=== PATIENT | male | born 1965 | race Caucasian/White ===

== ENCOUNTER 2020-05-27 22:46 | Inpatient (IN) | payer BC, SELFPAY ==
--- NOTE | ~2020-05-27 | XR_ITS ---
EXAMINATION: XR chest 1V portable INDICATION: Atrial fibrillation, heart palpitations TECHNIQUE: Portable AP chest at 2318 hours COMPARISON: None available FINDINGS: The lungs are free of acute opacities. There is no pleural effusion or pneumothorax. The ca rdiomediastinal silhouette is normal. IMPRESSION: 1. No acute cardiopulmonary abnormality. Reviewed, dictated and finalized at location A. ESTATE SALES MANAGER
--- NOTE | ~2020-05-27 | CT_ITS ---
EXAMINATION: CT brain wo con DATE: 05/28/2020 05:13 INDICATION: Acute cerebrovascular accident. TECHNIQUE: Computed tomography (CT) of the head was performed without intravenous contrast. The mA wa s adjusted according to patient size. Iterative reconstruction technique was employed. The dose-lengt h product was 756.67 mGy-cm. COMPARISON: None FINDINGS: Motion artifact is noted. There is no intracranial hemorrhage, acute infarction, or abnorma l intracranial mass lesion. The ventricles are normal in size. The orbits are normal. The paranasal s inuses are clear. The mastoid air cells are normal. IMPRESSION: 1. Normal brain. Sensitivity is mildly decreased by motion artifact. Reviewed, dictated and finalized at location B. RADIATION THERAPIST
[2020-05-27 22:49] VITALS: BP 130/87; PULSE 118; RESP 21; TEMP 36.2; O2SAT 95
--- NOTE | 2020-05-27 23:04 | ECG_ITS ---
Measurements Intervals [place] Rate: 117 P: NV: 0 QRS: -51 QRSD: 139 T: 7 QT: 352 QTc: 492 Interpretive Statements ATRIAL FIBRILLATION WITH RAPID VENTRICULAR RESPONSE RIGHT BUNDLE BRANCH BLOCK LEFT ANTERIOR FASCICULAR BLOCK BASELINE ARTIFACT- I, II, III, AVR, AVL, AVF, V2-V4 ABNORMAL ECG Electronically Signed On 05-28-2020 6:43:32 CORPORATE RECYCLING MANAGER by Artur Patterson D.O.
[2020-05-27 23:22] LABS: Basophils Absolute Auto 0.1 K/mm3 (0.0-0.1); Basophils Percent Auto 0.6 % (0.2-1.2); Eosinophils Absolute Auto 0.1 K/mm3 (0-0.3); Eosinophils Percent Auto 0.6 % (0-4.4); Hematocrit 54.2 % (42.0-52.0); Hemoglobin 19.5 g/dL (14.0-18.0); Immature Granulocyte Absolute 0.07 K/mm3 (0.00-0.031); Immature Granulocyte Percent A 0.5 % (0-0.5); Lymphocytes Absolute Auto 2.16 K/mm3 (0.9-3.2); Lymphocytes Percent Auto 14.6 % (18.3-44.2); Mean Corpuscular Hemoglobin 32.7 pg (26-34); Mean Corpuscular Volume 90.8 fl (80-100); Monocytes Absolute Auto 1.1 K/mm3 (0.1-0.6); Monocytes Percent Auto 7.2 % (2.6-8.5); Neutrophils Absolute Auto 11.3 K/mm3 (1.3-6.7); Neutrophils Percent Auto 76.5 % (45.5-73.1); Platelet Count Result 160 k/mm3 (150-375); Red Blood Count 5.97 M/mm3 (4.6-6.20); White Blood Count 14.8 K/mm3 (4.5-10.0)
[2020-05-27] MEDS: SODIUM CHLORIDE 0.9% IV 1,000 ML 999 ML IV CONT (23:31)
[2020-05-27 23:32] LABS: Prothrombin Time 13.5 Seconds (11.1-14.7)
[2020-05-27] MEDS: PANTOPRAZOLE SODIUM IV 40 MG VIAL 80 MG IV PUSH (23:32)
[2020-05-27 23:33] LABS: Partial Thromboplastin Time 26.7 SECONDS (22.3-36.8)
[2020-05-27 23:34] LABS: Anion Gap 8 mmol/L (8-16); Blood Urea Nitrogen 28 mg/dL (9-20); Carbon Dioxide 34 mmol/L (22-30); Chloride 89 mmol/L (98-107); Estimated CRCL calculation 52 ml/min; Estimated Glomerular Filt Rate 45; Glucose 117 mg/dL (75-110); Potassium 3.2 mmol/L (3.4-5.0); Sodium 131 mmol/L (137-145)
[2020-05-27 23:38] LABS: Alanine Aminotransferase 38 U/L (4-50); Albumin Level 3.7 g/dL (3.5-5.1); Alkaline Phosphatase 101 U/L (38-126); Aspartate Amino Transferase 71 U/L (17-59); Ethanol < 10 mg/dL (<10); Lipase 157 U/L (23-300); Magnesium 1.5 mg/dL (1.6-2.3)
--- NOTE | 2020-05-27 23:44 | ED.ARRPALP ---
HPI - Arrhythmia/Palpitations General Chief Complaint: Arrhythmia/Palpitations Stated Complaint: Afib Time Seen by Provider: 05/27/20 22:48 Source: patient Mode of arrival: ambulatory Limitations: no limitations History of Present Illness HPI narrative: This patient is a 54 year old male with history of chronic atrial fibrillation and alcohol abuse who presents for a concern of atrial fibrillation. PAtient states that he restarted drinking again 2 weeks ago. He has been drinking 9 pints a day of alcohol , and he stopped drinking 2 days ago. He states he has not being eating very much. He developed daily nausea and vomiting 1 week ago and he states he has multiple episodes of nonbloody emesis. He states starting 2 days ago he is having intermittent episodes of hiccups. He states occasionally the hiccups take his breath away. He denies having chest pain, sob, palpitations or heart racing. He denies abdominal pain but he states he feels gurgling in his stomach occasionally. He takes aspirin 325 mg and metoprolol daily. He is having withdrawal symptoms with diaphoresis, nausea, vomiting and shakiness. HE denies history of DTs or seizures with his withdrawal symptoms in the past. Related Data Home Medications Medication Instructions Recorded Confirmed testosterone cypionate 100 mg/mL 100 mg IM WEEKLY ml 03/11/20 05/28/20 intramuscular oil aspirin 325 mg PO DAILY 05/27/20 metoprolol tartrate 50 mg PO TID 05/27/20 05/28/20 chlorpromazine 10 mg PO TID 05/28/20 05/28/20 Allergies Allergy/AdvReac Type Severity Reaction Status Date / Time No Known Allergies Allergy Verified 05/27/20 23:00 Review of Systems Review of Systems: All systems reviewed & are unremarkable except as noted in HPI and below Constitutional: Constitutional: Denies chills and Denies fever(s) Cardiovascular: Cardiovascular: Denies chest pain and Denies radiating jaw, neck or arm pain Respiratory: Respiratory: Denies chest congestion and Denies cough Gastrointestinal: Gastrointestinal: Denies abdominal pain, Reports nausea and Reports vomiting Neurologic: Denies headache(s) [facility] Past Medical History Medical History Alcohol abuse Atrial fibrillation Family History Family History Mother Family history of malignant neoplasm of breast in first degree relative Social History Social History Smoking status: Current every day smoker Tobacco type: cigarettes Additional smoking assessment comments: unknown how long smoker or how much Alcohol intake: current Substance use: unknown Gender identity (if verbalized by the patient): Male Spiritual care concerns: No Exam Const: General: alert and diaphoretic; No ill appearing Orientation/consciousness: patient oriented x3 HENMT: Head: normocephalic and atraumatic Face and sinus: face symmetric Mouth: Yes oropharynx normal and Yes moist mucous membranes Eyes: EOM: EOMs intact bilaterally Chest: Chest palpation & inspection: normal inspection of the chest Resp: Effort & Inspection: normal respiratory effort and no retractions Auscultation: clear to auscultation bilaterally Cardio: Rate: tachycardic Rhythm: abnormal rhythm Heart sounds: no murmurs GI: GI Palp: Yes Soft to palpation, No Tenderness to palpation present (GI) and No Guarding due to palpation present (GI) Auscultation: normal bowel sounds Skin: Rashes: no rashes Neuro: General: patient oriented x3 and moves all extremities Extrem: General: no pedal edema Psych: Mental Status: mental status grossly normal Affect: normal affect Thought content: Yes Normal thought content present Course Consultations Consultation #1: I discussed case with Dr. Patterson . He recommends hydrating patient since patient has been vomiting. Hold off on agressive rate
[2020-05-27 23:46] LABS: Troponin I < 0.012 ng/mL (0.000-0.034)
[2020-05-28] VITALS (21 sets, daily range): BP systolic 92–130; BP diastolic 53–102; PULSE 87–130; RESP 18–34; TEMP 36.5–36.8; O2SAT 93–99; BMI 30.8; BMI 29.4
--- NOTE | 2020-05-28 | ECHO_ITS ---
Patient Info Name: Brandt Darnell Age: 54 years : 1965 Gender: Male Ht: 72 in Wt: 218 lbs BSA: 2.26 m2 HR: 86 bpm BP: 86 / 69 mmHg Heart Rhythm: Atrial Fibrillation Technical Quality: Good Exam Date: 05/28/2020 10:09 AM Exam Location: [facility] Pulmonary Patient Status: Inpatient Admit Date: 05/28/2020 Staff Ordering Physician: Rory Tripp MD Rehabilitation Manager: Emigdio Altamirano RDCS Attending Provider: Manjit Hernandez MD Exam Type: CA echo doppler color flow Study Info Indications I48.1 - Persistent atrial fibrillation Complete two-dimensional, color flow and Doppler transthoracic echocardiogram is performed. History/Risk Factors Atrial fibrillation; EtOH withdrawal, CHF. Summary 1. Complete two-dimensional, color flow and Doppler transthoracic echocardiogram is performed. 2. Left ventricular chamber dimension is normal. 3. Left ventricular systolic function is mildly reduced, estimated at 45-50%. 4. The left ventricular diastolic function is normal. 5. E/e' 8 is minimally elevated. 6. Patient is in atrial fibrillation. 7. Right ventricular systolic function is reduced based on TAPSE 1.2 cm. 8. Left atrial chamber dimension is moderately enlarged. 9. There is mild mitral valve regurgitation. 10. There is trace tricuspid valve regurgitation. 11. No pulmonary hypertension, estimated pulmonary arterial systolic pressure is 27 mmHg. Left Ventricle E/e' 8 is minimally elevated. Patient is in atrial fibrillation. Left ventricular chamber dimension is normal. Left ventricular systolic function is mildly reduced, estimated at 45-50%. The left ventricular diastolic function is normal. Right Ventricle Right ventricular systolic function is reduced based on TAPSE 1.2 cm. Right ventricular chamber dimension is not well visualized. Left Atria Left atrial chamber dimension is moderately enlarged. Right Atria Right atrial chamber dimension is normal. Aortic Valve The aortic valve is trileaflet. There is no aortic valve stenosis. There is no aortic valve regurgitation. Pulmonic Valve There is no pulmonic regurgitation. Mitral Valve There is no mitral valve stenosis. There is mild mitral valve regurgitation. Tricuspid Valve There is trace tricuspid valve regurgitation. No pulmonary hypertension, estimated pulmonary arterial systolic pressure is 27 mmHg. Pericardium/Pleural There is no pericardial effusion. Inferior Vena Cava Normal inferior vena cava with >50% collapse upon inspiration consistent with normal right atrial pressure, 5 mmHg. Aorta The aortic root size at the sinus of Valsalva is normal. Left Ventricular Outflow Tract Name Value Normal LVOT 2D LVOT Diameter 2.3 cm LVOT Doppler LVOT Peak Gradient 3 mmHg LVOT Mean Gradient 1 mmHg LVOT VTI 12 cm LVOT VTI/AV VTI Ratio 0.8 LVOT Stroke Volume 48 ml LVOT CO 3.4 l/min LVOT CI 1.5 l/min/
[2020-05-28] MEDS: LORazepam INJ (*CRX) 2 MG/ML VIAL IV PUSH ×2 (00:11→01:42)
[2020-05-28] MEDS: PROMETHAZINE HCL 25 MG/ML AMPUL 12.5 MG IV PUSH (00:13)
[2020-05-28] MEDS: THIAMINE HCL INJ 100 MG, FOLIC ACID INJ 1 MG, MULTIVITAMINS-12 INJ VIAL 1 5 ML, MULTIVI... 1000 MG IV CONT (00:43)
[2020-05-28 00:57] LABS: Lactic Acid Reflex 1.3 mmol/L (0.7-2.1)
[2020-05-28] MEDS: POTASSIUM CHLORIDE 20 MEQ TABLET 40 MEQ PO (01:00)
[2020-05-28] MEDS: LACTATED RINGERS 1,000 ML 999 ML IV CONT (01:36)
--- NOTE | 2020-05-28 02:34 | PM.IMHP ---
H&P: HPI History of Present Illness Date/Time: 05/28/20 02:34 Chief complaint: DT, atrial fibrillation with afib Narrative: This is a 54 year old male with known history of chronic atrial fibrillation and does not appear to be on any chronic anticoagulants who is known to be a chronic alcoholic and known to drink 9 pints of alcohol daily. The patient presented to the hospital with a complaint of nausea, vomiting, and nonstop hiccups for the past 2 days. He last drank alcohol 2 days ago as well. The patient was found to be diaphoretic with visible tremors and was treated in the ER with 2 mg of Ativan as well as phenergan. He then began to hallucinate. The patient was also found to be in rapid atrial fibrillation with heart rates in the 140s-150s. Cardiology, Dr. Patterson was consulted by ER provider. The patient was rehydrated with IV fluids. On my encounter with him he is encephalopathic and appears to be withdrawing from alcohol. He denies any signifciant symptoms although he does not appear reliable. The patient had denied to ER provider any history of seizures or DTs. Product Development Scientist has been consulted by ER provider. Review of Systems Review of Systems: ROS unobtainable: Yes unobtainable due to mental status PMFSH Past Medical History Medical History Alcohol abuse Atrial fibrillation Family History Family History Mother Family history of malignant neoplasm of breast in first degree relative Social History Social History Smoking status: Current every day smoker Tobacco type: cigarettes Additional smoking assessment comments: unknown how long smoker or how much Alcohol intake: current Substance use: unknown Gender identity (if verbalized by the patient): Male Spiritual care concerns: No Comments Past histories are not obtainable from the patient secondary to his altered mental status. Meds Home Medications and Allergies Home Medications Medication Instructions Recorded Confirmed Type testosterone cypionate 100 mg/mL 100 mg IM WEEKLY ml 03/11/20 05/28/20 History intramuscular oil aspirin 325 mg PO DAILY 05/27/20 05/28/20 History metoprolol tartrate 50 mg PO TID 05/27/20 05/28/20 History chlorpromazine 10 mg PO TID 05/28/20 05/28/20 History Allergies Allergy/AdvReac Type Severity Reaction Status Date / Time No Known Allergies Allergy Verified 05/27/20 23:00 Vital Signs Vital Signs - 24 hr 05/27/20 22:49 05/28/20 00:44 05/28/20 01:26 Temperature 36.2 C L 36.5 C Pulse Rate 118 H 122 H 115 H Respiratory Rate 21 H 26 H 27 H Blood Pressure 130/87 100/63 123/73 Pulse Oximetry 95 97 96 05/28/20 01:35 Temperature Pulse Rate 116 H Respiratory Rate 23 H Blood Pressure 109/83 Pulse Oximetry 95 Exam Const: General: alert and awake Nutritional Appearance: well nourished Orientation/consciousness: confusion, patient obtunded and Other orientation findings (encephalopathic++ ) HENMT: Head: normal to inspection General nose exam: Normal external nose present Face and sinus: normal facial exam Mouth: Yes Normal oral and palatal mucosa present and Yes oropharynx normal Eyes: Pupils: Equal, round and reactive pupils present EOM: EOMs intact bilaterally Neck: Neck: supple and no JVD Thyroid: thyroid normal Lymphatic: lymphadenopathy not noted Resp: Effort & Inspection: normal respiratory effort Auscultation: clear to auscultation bilaterally Cardio: Rate: tachycardic Rhythm: abnormal rhythm irregularly irregular Heart sounds: no murmurs GI: Inspection: normal to inspection Auscultation: normal bowel sounds Skin: General skin exam: normal color and no rashes or lesions noted Neuro: Cranial nerves: Yes Equal, round and reactive pupils present Motor exam (neuro): Other motor observations present (moves all fou
[2020-05-28] MEDS: dexmedeTOMIDine 400 MCG/100 ML 400 MCG/100 ML BAG 17.5 MCG IV CONT ×2 (03:00→06:36)
--- NOTE | 2020-05-28 03:00 | ADMGEN ---
This patient, Brandt Darnell, was admitted to Intensive Care Unit-7. Patient/family oriented to hospital policies and general routines including ID bracelet, bed and alarms, visiting hours, pain management, procedures, bathroom and other care routines, personal items, smoking policy, room service/diet, and visiting hours. Information on how to activate the Rapid Response Team has been discussed. Patient/Family are encouraged to report perceived risks to care and to ask questions if they do not understand what they are told or what they should do.
[2020-05-28 05:24] LABS: Troponin I < 0.012 ng/mL (0.000-0.034)
[2020-05-28 05:30] LABS: Glucose Point of Care 104 (65-105)
[2020-05-28 06:05] LABS: Add Urine Microscopic? YES; Appearance Urine Clear (Clear); Bilirubin Urine Negative (Negative); Blood Urine 1+ (Negative); Color Urine Yellow (Yellow); Glucose Urine UA Negative (Negative); Ketones Urine Trace mg/dL (Negative); Leukocyte Esterase Ur Negative LEU/UL (Negative); Nitrate Urine Negative (Negative); Protein Urine Negative (Negative); RBC Urine 0-2 /hpf (0-2); Specific Grav Ur 1.011 (1.001-1.035); WBC Urine 0-3 /hpf
[2020-05-28] MEDS: SODIUM CHLORIDE 0.9% IV 1,000 ML 125 ML IV CONT ×2 (06:43→17:49)
[2020-05-28 06:44] LABS: Alanine Aminotransferase 29 U/L (4-50); Albumin Level 2.7 g/dL (3.5-5.1); Alkaline Phosphatase 73 U/L (38-126); Anion Gap 4 mmol/L (8-16); Aspartate Amino Transferase 60 U/L (17-59); Bilirubin,Total 1.4 mg/dL (0.2-1.3); Blood Urea Nitrogen 22 mg/dL (9-20); Carbon Dioxide 29 mmol/L (22-30); Chloride 101 mmol/L (98-107); Estimated CRCL calculation 84 ml/min; Estimated Glomerular Filt Rate > 60; Glucose 91 mg/dL (75-110); Magnesium 1.8 mg/dL (1.6-2.3); Potassium 3.4 mmol/L (3.4-5.0); Sodium 134 mmol/L (137-145)
--- NOTE | 2020-05-28 07:32 | PM.CNCAR ---
Assessment and Plan Assessment and plan (1) Atrial fibrillation with rapid ventricular response: Code(s): I48.91 - Unspecified atrial fibrillation Status: Acute Assessment and Plan: His HR is rapid due to dehydration and alcohol withdrawal. His rate was controlled with Metoprolol previously for persistent atrial fibrillation. [id number] 0. On aspirin. Rate is improved with IV fluids rehydration and sedation. Resume Metoprolol 50 mg TID since BP is stable. (2) Alcohol withdrawal delirium: Code(s): F10.231 - Alcohol dependence with withdrawal delirium Status: Acute Assessment and Plan: Management as per hospitalist or classroom instructor. (3) Chronic systolic (congestive) heart failure: Code(s): I50.22 - Chronic systolic (congestive) heart failure Status: Acute Assessment and Plan: Obtain echo as he is due to for one. History of Present Illness History of Present Illness Consult date/time: 05/28/20 07:32 Reason for consult: Atrail fib with RVR. 54 yr old man whose PCP is Dr. Ortega presented to ED last night due to nausea/vomiting. He has a history of atrial fibrillation, moderate systolic dysfunction,alcoholic who quit drinking in December 2019, quit smoking in December 2019, JEFF on CPAP but needs new mask diagnosed in 2013. Patient is currently asleep in restraints so I did not want to wake him up since he was agitated. Per the ED and H and P by hospitalist notes, patient had nausea, vomiting for last 2 days so he decided to come in for evaluation. States he started drinking about 9 pints of alcohol again 2 weeks ago and last drink was 2 days ago. He was found to be in rapid atrial fibrillation up to 130 bpm. IVF was started and his HR is improved to 90's bpm. He became agitated, delirious so he was moved to ICU. Ativan was given in ED. Then, Precedex was started for acute alcohol withdrawal. Previously, reported that he was found to be in atrial fibrillation in ED at [facility] in December 2019. His HR was controlled with Metoprolol and on aspirin. He quit drinking alcohol at that time which he was drinking a case of beer and a pint of Tequila daily. He quit smoking. He can walk 1 mile without any problems. He does not feel palpitations now though he is in atrial fib. Cardiovascular Procedures Echo/MUGA:: 12/19/[address] [facility]: EF 40%, mild LVE, mild LVH, mild MR/TR, RVSP 40 mmHg. Electrophysiology:: 03/11/20 EKG: Atrial fibrillation at 86 bpm, LAD, RBBB. Reason For Visit: DT, atrial fibrillation with afib Review of Systems Review of Systems: ROS unobtainable: Yes unobtainable due to medical condition [facility] Past Medical History Medical History Alcohol abuse Atrial fibrillation Family History Family History Mother Family history of malignant neoplasm of breast in first degree relative Social History Social History Smoking status: Current every day smoker Tobacco type: cigarettes Additional smoking assessment comments: unknown how long smoker or how much Alcohol intake: current Substance use: unknown Gender identity (if verbalized by the patient): Male Spiritual care concerns: No Meds Home Medications and Allergies Home Medications Medication Instructions Recorded Confirmed Type testosterone cypionate 100 mg/mL 100 mg IM WEEKLY ml 03/11/20 05/28/20 History intramuscular oil aspirin 325 mg PO DAILY 05/27/20 History metoprolol tartrate 50 mg PO TID 05/27/20 05/28/20 History chlorpromazine 10 mg PO TID 05/28/20 05/28/20 History Allergies Allergy/AdvReac Type Severity Reaction Status Date / Time No Known Allergies Allergy Verified 05/27/20 23:00 Vital Signs Vital Signs - 24 hr 05/27/20 22:49 05/28/20 00:44 05/28/20 01:26 Temperature 97.1 F L 97.7 F Pulse Rate 118 H 122 H 115 H Pu
[2020-05-28 07:33] LABS: Basophils Absolute Auto 0.1 K/mm3 (0.0-0.1); Basophils Percent Auto 0.6 % (0.2-1.2); Eosinophils Absolute Auto 0.1 K/mm3 (0-0.3); Eosinophils Percent Auto 1.2 % (0-4.4); Hematocrit 45.5 % (42.0-52.0); Hemoglobin 16.2 g/dL (14.0-18.0); Immature Granulocyte Absolute 0.04 K/mm3 (0.00-0.031); Immature Granulocyte Percent A 0.4 % (0-0.5); Lymphocytes Absolute Auto 1.92 K/mm3 (0.9-3.2); Lymphocytes Percent Auto 18.4 % (18.3-44.2); Mean Corpuscular HGB Conc 35.6 g/dl (32-36); Mean Corpuscular Hemoglobin 33.1 pg (26-34); Mean Corpuscular Volume 92.9 fl (80-100); Monocytes Absolute Auto 0.8 K/mm3 (0.1-0.6); Monocytes Percent Auto 7.2 % (2.6-8.5); Neutrophils Absolute Auto 7.5 K/mm3 (1.3-6.7); Neutrophils Percent Auto 72.2 % (45.5-73.1); Platelet Count Result 142 k/mm3 (150-375); Red Cell Distribution Width 15.6 % (11.5-14.5); White Blood Count 10.4 K/mm3 (4.5-10.0)
[2020-05-28] MEDS: KCL 20 MEQ/SW 100 ML 100 ML 50 MEQ IVPB ×2 (07:39→11:38)
[2020-05-28] MEDS: PANTOPRAZOLE SODIUM IV 40 MG VIAL IV PUSH (08:49)
--- NOTE | 2020-05-28 10:49 | WPDCNINT ---
Assessment and Plan Assessment and plan (1) Alcohol withdrawal delirium: Code(s): F10.231 - Alcohol dependence with withdrawal delirium Status: Acute Assessment and Plan: ICU CIWA monitoring Precedex currently is on hold because patient appears to be too sedated. Will continue Precedex as needed for now Thiamine and folic acid ordered (2) Acute encephalopathy: Code(s): G93.40 - Encephalopathy, unspecified Status: Acute Assessment and Plan: Toxic metabolic encephalopathy Head CT was normal Patient received Ativan multiple times in the ER and now was on Precedex overnight. Precedex is on hold now Monitor (3) Atrial fibrillation with rapid ventricular response: Code(s): I48.91 - Unspecified atrial fibrillation Status: Acute Assessment and Plan: Heart rate controlled IV Lopressor p.r.n. until patient is able to take p.o. metoprolol Aspirin Echo ordered (4) Hypomagnesemia: Code(s): E83.42 - Hypomagnesemia Status: Acute Assessment and Plan: 1 g magnesium sulfate (5) Hypokalemia: Code(s): E87.6 - Hypokalemia Status: Acute Assessment and Plan: Replacement ordered (6) Acute dehydration: Code(s): E86.0 - Dehydration Status: Acute Assessment and Plan: Improved with IV fluids. Continue at low rate (7) [place] (acute kidney injury): Code(s): N17.9 - Acute kidney failure, unspecified Status: Acute Assessment and Plan: Likely secondary to dehydration. Improved after IV fluid. Patient apparently has history of congestive heart failure. Will decrease IV fluid rate now Additional Plan DVT prophylaxis -Lovenox Nutrition -NPO Code Status - Full Code Sales Account Executive Consult Note Consult date: 05/28/20 Time Seen: 08:15 HPI: Brandt Darnell is a 54 year old male with known history of chronic atrial fibrillation and does not appear to be on any chronic anticoagulants who is known to be a chronic alcoholic and known to drink 9 pints of alcohol daily. The patient presented to the hospital last night with complaint of nausea, vomiting, and nonstop hiccups for the past 2 days. He last drank alcohol 2 days ago as well. The patient was found to be diaphoretic with visible tremors and was treated in the ER with 2 mg of Ativan as well as phenergan. He later was given another dose of Ativan. Patient developed hallucinations and was diagnosed with alcohol withdrawal. Was also found to be in a [place] and dehydrated. Patient was given IV fluids, cardiology was consulted. His heart rate improved with IV fluids and did not required any rate control medication. Patient was then started on Precedex for alcohol withdrawal and delirium and admitted to ICU. This morning when I saw the patient he was drowsy and unarousable. I stopped the Precedex. Patient was unable to provide any history and history obtained from chart. Review of Systems Review of Systems: ROS unobtainable: Yes unobtainable due to medical condition [facility] Past Medical History Medical History Alcohol abuse Atrial fibrillation Family History Family History Mother Family history of malignant neoplasm of breast in first degree relative Social History Social History Smoking status: Current every day smoker Tobacco type: cigarettes Additional smoking assessment comments: unknown how long smoker or how much Alcohol intake: current Substance use: unknown Gender identity (if verbalized by the patient): Male Spiritual care concerns: No Meds Home Medications and Allergies Home Medications Medication Instructions Recorded Confirmed Type testosterone cypionate 100 mg/mL 100 mg IM WEEKLY ml 03/11/20 05/28/20 History intramuscular oil aspirin 325 mg PO DAILY 05/27/20 His
[2020-05-28] MEDS: THIAMINE HCL 200 MG/2 ML VIAL 100 MG IV PUSH (11:37)
[2020-05-28] MEDS: MAGNESIUM SULF 1 GM/D5W 100 ML 1 GM/100 ML BAG IVPB (11:37)
[2020-05-28] MEDS: FOLIC ACID 1 MG/0.2 ML INJ IV PUSH (11:37)
--- NOTE | 2020-05-28 16:10 | PM.IMPN ---
Progress Note: A&P Assessment and Plan (1) Acute encephalopathy: Code(s): G93.40 - Encephalopathy, unspecified Status: Acute Assessment and Plan: Appears to be secondary to acute alcohol withdrawal. The patient has been admitted to ICU. NPO. Continue telemetry. Neuro checks. We will obtain a stat CT brain rule out acute hemorrhagic CVA. Continue treatment for alcohol withdrawal. Check TSH reflex T4. 05/28/20 16:10 Patient is a 54-year-old male with history of atrial fibrillation and alcohol abuse he had stop drinking in December of 2019 is doing reasonably well apparently patient restarted drinking 2 weeks ago and had been drinking 9 pt of liquor every day and presented emergency department with a complaint of persistent hiccups, nausea or vomiting, upon arrival emergency department he was in atrial fibrillation with RVR, emergency department he was started on IV fluid which did improve his heart rate, patient was seen by his Cardiology patient [id number] score is 0 and patient does not systematic anticoagulation he was started on aspirin, patient is also placed on Precedex for agitation currently is quite somnolent and sleepy unable to provide any review of symptoms or history patient is being monitor with CIWA protocol and further recommendation to follow. (2) Atrial fibrillation with rapid ventricular response: Code(s): I48.91 - Unspecified atrial fibrillation Status: Acute Assessment and Plan: Patient does have a history of chronic atrial fibrillation. We will consider rate-controlling medications such as Cardizem IV if necessary. ER provider has consulted Cardiology who recommended IV fluids. Echocardiogram in a.m.. Continue telemetry. (3) Alcohol withdrawal: Qualifiers: Complication of substance-induced condition: with delirium Qualified Code(s): F10.231 - Alcohol dependence with withdrawal delirium Code(s): F10.239 - Alcohol dependence with withdrawal, unspecified Status: Acute Assessment and Plan: The patient is in severe alcohol withdrawal with diaphoresis, anxiety, Nausea and vomiting, visible tremors, and hallucinations. his last drink was 2 days ago. We will treat any acute seizures accordingly. We will start Precedex IV for alcohol withdrawal. (4) Sepsis: Qualifiers: Sepsis type: sepsis due to unspecified organism Sepsis acute organ dysfunction status: with acute organ dysfunction Severe sepsis acute organ dysfunction type: acute renal failure Acute renal failure type: unspecified Severe sepsis shock status: without septic shock Qualified Code(s): A41.9 - Sepsis, unspecified organism; R65.20 - Severe sepsis without septic shock; N17.9 - Acute kidney failure, unspecified Code(s): A41.9 - Sepsis, unspecified organism Status: Acute Assessment and Plan: With leukocytosis, tachycardia, and tachypnea. Source of sepsis is not clear at this time. Lactic acid is within normal limits. Patient's abnormal vitals may also be secondary to acute alcohol withdrawal. We will check urinalysis with reflex urine culture as well as blood cultures. Will consider starting IV antibiotics if there is any signs or symptoms of bacterial infections. (5) Acute renal failure: Code(s): N17.9 - Acute kidney failure, unspecified Status: Acute Assessment and Plan: Likely secondary to hypoperfusion, sepsis, and dehydration. Continue IV fluid challenge overnight. Avoid nephrotoxin agents. Renally dose medications. Monitor urine output and renal function. (6) Nausea and vomiting: Qualifiers: Vomiting type: unspecified Vomiting Intractability: non-intractable Qualified Code(s): R11.2 - Nausea with vomiting, unspecified Code(s): R11.2 - Nausea with vomiting, unspecified Status: Acute Assessment and Plan: Antiemetics as needed. Nausea vomiting is likely secondary to alcohol withdrawal. (7) Acute
[2020-05-29] VITALS (15 sets, daily range): BP systolic 100–150; BP diastolic 70–99; PULSE 80–115; RESP 14–25; TEMP 36.4–37.3; O2SAT 92–99
[2020-05-29] MEDS: dexmedeTOMIDine 400 MCG/100 ML 400 MCG/100 ML BAG 10 MCG IV CONT (00:23)
[2020-05-29] MEDS: SODIUM CHLORIDE 0.9% IV 1,000 ML 125 ML IV CONT (03:05)
[2020-05-29 04:39] LABS: Basophils Absolute Auto 0.1 K/mm3 (0.0-0.1); Basophils Percent Auto 0.8 % (0.2-1.2); Eosinophils Absolute Auto 0.3 K/mm3 (0-0.3); Eosinophils Percent Auto 3.2 % (0-4.4); Hematocrit 44.5 % (42.0-52.0); Hemoglobin 15.4 g/dL (14.0-18.0); Immature Granulocyte Absolute 0.04 K/mm3 (0.00-0.031); Immature Granulocyte Percent A 0.5 % (0-0.5); Immature Platelet Fraction Pct 5.4 % (0.9-11.2); Lymphocytes Absolute Auto 1.77 K/mm3 (0.9-3.2); Lymphocytes Percent Auto 20.1 % (18.3-44.2); Mean Corpuscular HGB Conc 34.6 g/dl (32-36); Mean Corpuscular Hemoglobin 32.1 pg (26-34); Mean Corpuscular Volume 92.7 fl (80-100); Monocytes Absolute Auto 0.7 K/mm3 (0.1-0.6); Monocytes Percent Auto 7.8 % (2.6-8.5); Neutrophils Percent Auto 67.6 % (45.5-73.1); Platelet Count Result 114 k/mm3 (150-375); Red Cell Distribution Width 15.3 % (11.5-14.5); White Blood Count 8.8 K/mm3 (4.5-10.0)
[2020-05-29 04:59] LABS: Alanine Aminotransferase 28 U/L (4-50); Albumin Level 2.7 g/dL (3.5-5.1); Alkaline Phosphatase 75 U/L (38-126); Anion Gap 2 mmol/L (8-16); Aspartate Amino Transferase 46 U/L (17-59); Bilirubin,Total 1.3 mg/dL (0.2-1.3); Blood Urea Nitrogen 18 mg/dL (9-20); Calcium 7.8 mg/dL (8.4-10.2); Carbon Dioxide 30 mmol/L (22-30); Chloride 101 mmol/L (98-107); Estimated CRCL calculation 89 ml/min; Estimated Glomerular Filt Rate > 60; Glucose 64 mg/dL (75-110); Magnesium 1.9 mg/dL (1.6-2.3); Potassium 3.7 mmol/L (3.4-5.0); Sodium 133 mmol/L (137-145)
--- NOTE | 2020-05-29 07:52 | PM.PNCARD ---
Progress Note: A&P Assessment and Plan (1) Atrial fibrillation with rapid ventricular response: Code(s): I48.91 - Unspecified atrial fibrillation Status: Acute Assessment and Plan: His HR is rapid due to dehydration and alcohol withdrawal. His rate was controlled with Metoprolol previously for persistent atrial fibrillation. [id number] 0. On aspirin. Rate is improved with IV fluids rehydration and sedation yesterday. If he is able to take PO medications which appears he can today, resume Metoprolol 25-50 mg BID-TID to heart rate control. (2) Alcohol withdrawal delirium: Code(s): F10.231 - Alcohol dependence with withdrawal delirium Status: Acute Assessment and Plan: Management as per hospitalist or actuary clerk. Advise to avoid alcohol. (3) Chronic systolic (congestive) heart failure: Code(s): I50.22 - Chronic systolic (congestive) heart failure Status: Acute Assessment and Plan: EF shows mild systolic dysfunction, RV systolic dysfunction based on TAPSE, mod LAE. Subjective Date/time seen: 05/29/20 07:52 Patient is awake, alert and oriented. Denies chest pain or sob. Exam Const: General: cooperative, healthy appearing and comfortable Resp: Auscultation: clear to auscultation bilaterally, no crackles, no rales, no rhonchi and no wheezes Cardio: Jugular venous distension: no JVD Rate: regular rate Rhythm: abnormal rhythm Heart sounds: no murmurs Peripheral pulses: dorsalis pedis present GI: GI Palp: No abdominal tenderness Neuro: General: oriented to person, oriented to place and oriented to time Extrem: Right lower extremity: no edema Left lower extremity: no edema Objective Data Vital Signs Vital Signs: Vital Signs - 24 hr 05/28/20 08:00 05/28/20 10:00 05/28/20 12:00 Temperature 97.9 F Pulse Rate 93 94 89 Pulse Rate [Bilateral Radial Palpation] 93 89 Respiratory Rate 33 H 30 H 33 H Blood Pressure 109/93 H 92/67 L 108/87 Pulse Oximetry 94 95 96 05/28/20 14:00 05/28/20 14:04 05/28/20 16:00 Temperature Pulse Rate 91 91 96 Pulse Rate [Bilateral Radial Palpation] 96 Respiratory Rate 28 H 28 H 25 H Blood Pressure 100/56 L 106/90 Pulse Oximetry 96 96 05/28/20 18:00 05/28/20 19:05 05/28/20 20:00 Temperature 98.2 F Pulse Rate 92 87 94 Pulse Rate [Bilateral Radial Palpation] 94 Respiratory Rate 23 H 24 H 24 H Blood Pressure 113/91 H 117/90 Pulse Oximetry 98 97 05/28/20 20:15 05/28/20 22:00 05/28/20 23:46 Temperature Pulse Rate 94 93 93 Pulse Rate [Bilateral Radial Palpation] Respiratory Rate 26 H 22 H 21 H Blood Pressure 130/102 H Pulse Oximetry 99 05/29/20 00:00 05/29/20 00:23 05/29/20 02:00 Temperature Pulse Rate 93 93 98 Pulse Rate [Bilateral Radial Palpation] 94 Respiratory Rate 21 H 21 H 22 H Blood Pressure 138/98 H 139/86 Pulse Oximetry 98 98 05/29/20 04:00 05/29/20 06:00 05/29/20 07:39 Temperature 98.2 F 98.3 F 97.6 F Pulse Rate 96 94 95 Pulse Rate [Bilateral Radial Palpation] 94 Respiratory Rate 16 16 19 Blood Pressure 135/99 H 150/99 H 130/95 H Pulse Oximetry 96 99 92 Intake/Output Intake/Output: Intake & Output 05/26/20 05/27/20 05/28/20 05/29/20 23:59 23:59 23:59 23:59 Intake Total 5907.2 100 Output Total 850 850 Balance 5057.2 -750 Meds/Results Medications: Active Medications Generic Name Dose Route Start Last Admin Trade Name Freq PRN Reason Stop Dose Admin Aspirin 325 mg 05/28/20 08:00 05/28/20 11:17 Aspirin 325 Mg Tablet PO Not Given DAILY@0800 ARACELI Enoxaparin Sodium 40 mg 05/29/20 09:00 Enoxaparin 40 Mg/0.4 Ml Syringe SUB-Q DAILY ARACELI Folic Acid 1 mg 05/28/20 09:00 05/28/20 11:37 Folic Acid 1 Mg/0.2 Ml Inj IV PUSH 1 mg QAM ARACELI Administration Sodium Chloride 1,000 mls @ 75 mls/hr 05/28/20 06:15 05/29/20 03:05 Normal Saline Iv IV CONT 125 mls/hr .[id number] ARACELI Administration Lorazepam 1 mg 120
[2020-05-29] MEDS: FOLIC ACID 1 MG/0.2 ML INJ IV PUSH (08:29)
[2020-05-29] MEDS: ASPIRIN 325 MG TABLET PO (08:29)
[2020-05-29] MEDS: THIAMINE HCL 200 MG/2 ML VIAL 100 MG IV PUSH (09:16)
[2020-05-29] MEDS: ENOXAPARIN 40 MG/0.4 ML SYRINGE SUB-Q (09:17)
[2020-05-29] MEDS: PANTOPRAZOLE SODIUM IV 40 MG VIAL IV PUSH (09:17)
[2020-05-29] MEDS: METOPROLOL TARTRATE 25 MG TABLET PO ×2 (09:17→20:54)
[2020-05-29] MEDS: chlordiazePOXIDE (*CRX) 25 MG CAPSULE 50 MG PO (10:59)
--- NOTE | 2020-05-29 12:40 | WPDINTPN ---
Progress Note: A&P Assessment and Plan (1) Alcohol withdrawal delirium: Code(s): F10.231 - Alcohol dependence with withdrawal delirium Status: Acute Assessment and Plan: Currently on Precedex which I will discontinue I ordered Ativan p.o. and IV depending on his CIWA score Continue CIWA monitoring Continue Thiamine and folic acid ordered (2) Acute encephalopathy: Code(s): G93.40 - Encephalopathy, unspecified Status: Acute Assessment and Plan: Toxic metabolic encephalopathy Head CT was normal Patient received Ativan multiple times in the ER and now was on Precedex overnight. Precedex is on hold now Improved patient appears at baseline (3) Atrial fibrillation with rapid ventricular response: Code(s): I48.91 - Unspecified atrial fibrillation Status: Acute Assessment and Plan: Heart rate controlled IV Lopressor p.r.n. Aspirin Echo reviewed P.o. metoprolol resume (4) Hypomagnesemia: Code(s): E83.42 - Hypomagnesemia Status: Acute Assessment and Plan: Improved after 1 g magnesium sulfate (5) Hypokalemia: Code(s): E87.6 - Hypokalemia Status: Acute Assessment and Plan: Replacement ordered (6) Acute dehydration: Code(s): E86.0 - Dehydration Status: Acute Assessment and Plan: Improved with IV fluids. Continue at low rate (7) [place] (acute kidney injury): Code(s): N17.9 - Acute kidney failure, unspecified Status: Acute Assessment and Plan: Likely secondary to dehydration. Improved after IV fluid. Creatinine now in normal range (8) CHF (congestive heart failure): Code(s): I50.9 - Heart failure, unspecified Status: Acute Assessment and Plan: Cardiology following Continue metoprolol ECHO Summary 1. Complete two-dimensional, color flow and Doppler transthoracic echocardiogram is performed. 2. Left ventricular chamber dimension is normal. 3. Left ventricular systolic function is mildly reduced, estimated at 45-50%. 4. The left ventricular diastolic function is normal. 5. E/e' 8 is minimally elevated. 6. Patient is in atrial fibrillation. 7. Right ventricular systolic function is reduced based on TAPSE 1.2 cm. 8. Left atrial chamber dimension is moderately enlarged. 9. There is mild mitral valve regurgitation. 10. There is trace tricuspid valve regurgitation. 11. No pulmonary h pertension, estimated pulmonary arterial systolic pressure is 27 mmHg. Additional Plan DVT prophylaxis -Lovenox Nutrition -regular diet Code Status - Full Code Transfer out of ICU today Subjective Date/time seen: 05/29/20 Patient is much more awake and alert today. Although he is on Precedex at 0.4, he is alert oriented x3. He denies any complaints and feels good. He feels he a was admitted because of atrial fibrillation and is unaware. He denies any hallucinations at this time Patient denies fever, chest pain, shortness of breath, cough, nausea vomiting, abdominal pain, diarrhea, headache or constipation. He would like to eat food Review of Systems Review of Systems: All systems reviewed & are unremarkable except as noted in HPI and below (Subjective) Exam Narrative: Exam Narrative: General: Pt is alert awake and in NAD Lungs/Chest: Trachea central Clear BS B/L, No crackles or wheezing. Cardiac: RRR. Normal S1 S2. No murmurs Circulation: Pedal pulses are intact and symmetrical. Abdomen: Normal bowel sounds.. Soft. NT. ND. Extremities: No clubbing, cyanosis or edema. Warm : [place] in place Neurologic: Follows commands. Moves all 4 extremities PERRL Skin: No Rash Objective Data Vital Signs Vital Signs: Vital Signs - 24 hr 05/28/20 14:00 05/28/20 14:04 05/28/20 16:00 Temperature Pulse Rate 91 91 96 Pulse Rate [Bilateral Radial Palpation] 96 Respiratory Rate 28 H 28 H 25 H Blood Pressure 100/56 L 106/90 Pulse Oximetry 96 96
--- NOTE | 2020-05-29 14:01 | PC.NURSE ---
This patient, Brandt Darnell, was transferred to [facility] on 05/29/20 at 1355. Personal belongings sent with patient. Report given to Bhavya OLSEN. Appropriate documentation sent with patient.
[2020-05-29] MEDS: POTASSIUM CHLORIDE 20 MEQ TABLET 40 MEQ PO (14:26)
--- NOTE | 2020-05-29 14:36 | PC.NURSE ---
Patient arrives to [facility] room 5. Patient is A & O x 4, tremors noted. VS obtained. Assessment as charted. Sitter at bedside. Patient updated on plan of care and verbalizes understanding. Will continue to monitor.
[2020-05-29] MEDS: chlordiazePOXIDE (*CRX) 25 MG CAPSULE PO (17:29)
[2020-05-29] MEDS: NICOTINE (*PBKC) 4 MG GUM PO (20:20)
[2020-05-29] MEDS: LORazepam (*CRX) 1 MG TABLET PO (20:54)
[2020-05-30] VITALS: BP 140/102; PULSE 107; RESP 18; TEMP 36.2; O2SAT 98
[2020-05-30] MEDS: chlordiazePOXIDE (*CRX) 25 MG CAPSULE PO ×2 (00:09→06:08)
--- NOTE | 2020-05-30 00:29 | PC.NURSE ---
Upon entering room for PM medications pt. states that he would like to leave and continue to take medications at home. Pt. offered PRN dose of Ativan and agrees to stay until morning. Pt. education on relaxation techniques and room lights dimmed for comfort. Pt. in no apparent distress at this time. Will continue to monitor pt.
[2020-05-30] MEDS: LORazepam (*CRX) 1 MG TABLET PO ×2 (00:31→03:58)
[2020-05-30 04:00] VITALS: BP 123/88; PULSE 99
[2020-05-30 05:48] LABS: Hematocrit 45.8 % (42.0-52.0); Hemoglobin 15.9 g/dL (14.0-18.0); Mean Corpuscular HGB Conc 34.7 g/dl (32-36); Mean Corpuscular Hemoglobin 32.9 pg (26-34); Mean Corpuscular Volume 94.8 fl (80-100); Mean Platelet Volume 10.2 fl (7.4-10.4); Platelet Count Result 145 k/mm3 (150-375); Red Blood Count 4.83 M/mm3 (4.6-6.20); Red Cell Distribution Width 15.8 % (11.5-14.5); White Blood Count 7.8 K/mm3 (4.5-10.0)
[2020-05-30 06:10] LABS: Alanine Aminotransferase 28 U/L (4-50); Albumin Level 2.9 g/dL (3.5-5.1); Alkaline Phosphatase 82 U/L (38-126); Anion Gap 1 mmol/L (8-16); Aspartate Amino Transferase 41 U/L (17-59); Bilirubin,Total 0.9 mg/dL (0.2-1.3); Blood Urea Nitrogen 10 mg/dL (9-20); Calcium 8.1 mg/dL (8.4-10.2); Carbon Dioxide 32 mmol/L (22-30); Chloride 103 mmol/L (98-107); Estimated CRCL calculation 101 ml/min; Estimated Glomerular Filt Rate > 60; Glucose 80 mg/dL (75-110); Magnesium 1.9 mg/dL (1.6-2.3); Potassium 3.5 mmol/L (3.4-5.0); Sodium 136 mmol/L (137-145)
[2020-05-30 08:00] VITALS: BP 138/97; PULSE 61; PULSE 97; RESP 16; TEMP 36.6; O2SAT 96
--- NOTE | 2020-05-30 08:48 | PM.PNCARD ---
Progress Note: A&P Assessment and Plan (1) Atrial fibrillation with rapid ventricular response: Code(s): I48.91 - Unspecified atrial fibrillation Status: Acute Assessment and Plan: His HR is rapid due to dehydration and alcohol withdrawal. His rate was controlled with Metoprolol previously for persistent atrial fibrillation. [id number] 0. On aspirin. Rate is improved with IV fluids rehydration and Ativan prn. Increase Metoprolol 50 mg TID for heart rate control. (2) Alcohol withdrawal delirium: Code(s): F10.231 - Alcohol dependence with withdrawal delirium Status: Acute Assessment and Plan: Management as per hospitalist. Advise to avoid alcohol. (3) Chronic systolic (congestive) heart failure: Code(s): I50.22 - Chronic systolic (congestive) heart failure Status: Acute Assessment and Plan: EF shows mild systolic dysfunction, RV systolic dysfunction based on TAPSE, mod LAE. Subjective Date/time seen: 05/30/20 08:48 Reports less shakiness in his hands. Denies chest pain or sob. Exam Const: General: cooperative, healthy appearing and comfortable Resp: Auscultation: clear to auscultation bilaterally, no crackles, no rales, no rhonchi and no wheezes Cardio: Jugular venous distension: no JVD Rate: regular rate Rhythm: abnormal rhythm Heart sounds: no murmurs Peripheral pulses: dorsalis pedis present GI: GI Palp: No abdominal tenderness Neuro: General: oriented to person, oriented to place and oriented to time Extrem: Right lower extremity: no edema Left lower extremity: no edema Objective Data Vital Signs Vital Signs: Vital Signs - 24 hr 05/29/20 09:17 05/29/20 10:00 05/29/20 12:10 Temperature Pulse Rate 95 96 Pulse Rate [Bilateral Radial Palpation] Respiratory Rate 25 H Blood Pressure 100/79 107/70 Pulse Oximetry 93 05/29/20 14:00 05/29/20 16:05 05/29/20 20:00 Temperature 99.1 F Pulse Rate 92 115 H 103 H Pulse Rate [Bilateral Radial Palpation] 115 H 103 H Respiratory Rate 14 20 16 Blood Pressure 116/81 123/73 125/73 Pulse Oximetry 98 98 97 05/29/20 20:54 05/30/20 00:00 05/30/20 04:00 Temperature 97.2 F L Pulse Rate 100 107 H Pulse Rate [Bilateral Radial Palpation] 107 H 99 Respiratory Rate 18 Blood Pressure 140/102 H 123/88 Pulse Oximetry 98 Intake/Output Intake/Output: Intake & Output 05/27/20 05/28/20 05/29/20 05/30/20 23:59 23:59 23:59 23:59 Intake Total 5907.2 505 Output Total 850 2225 Balance 5057.2 -1720 Meds/Results Medications: Active Medications Generic Name Dose Route Start Last Admin Trade Name Freq PRN Reason Stop Dose Admin Aspirin 325 mg 05/28/20 08:00 05/29/20 08:29 Aspirin 325 Mg Tablet PO 325 mg DAILY@0800 ARACELI Administration Chlordiazepoxide HCl 25 mg 05/29/20 17:01 05/30/20 06:08 Chlordiazepoxide (*Crx) 25 Mg Capsule PO 25 mg Q6HR ARACELI Administration Enoxaparin Sodium 40 mg 05/29/20 09:00 05/29/20 09:17 Enoxaparin 40 Mg/0.4 Ml Syringe SUB-Q 40 mg DAILY ARACELI Administration Folic Acid 1 mg 05/28/20 09:00 05/29/20 08:29 Folic Acid 1 Mg/0.2 Ml Inj IV PUSH 1 mg QAM ARACELI Administration Lorazepam 1 mg 05/29/20 07:30 05/30/20 03:58 Lorazepam (*Crx) 1 Mg Tablet PO 1 mg Q4HR PRN Administration CIWA Score < 10 Lorazepam 1 mg 05/29/20 07:30 Lorazepam Inj (*Crx) 2 Mg/Ml Vial IV PUSH Q4H PRN CIWA Score 11-15 Lorazepam 2 mg 05/29/20 07:30 Lorazepam Inj (*Crx) 2 Mg/Ml Vial IV PUSH Q4H PRN CIWA Score > 15 Metoprolol Tartrate 5 mg 05/28/20 07:47 Metoprolol Tartrate Inj 5 Mg/5 Ml Vial IV PUSH Q4H PRN For HR > 120 Metoprolol Tartrate 50 mg 05/30/20 09:00 Metoprolol Tartrate 50 Mg Tab PO Q12HR ARACELI Nicotine Polacrilex 4 mg 05/29/20 19:50 05/29/20 20:20 Nicotine (*Pbkc) 4 Mg Gum PO 4 mg PRN PRN Administration Nicotine Cravings Ondansetron HCl 4
--- NOTE | 2020-05-30 11:59 | PC.NURSE ---
Late entry for 0730- Pt resting comfortably in bed. No apparent anxiety or agitation noted. Assessment completed. Pt reviewing menu to order breakfast. Call doran within reach
--- NOTE | 2020-05-30 12:01 | PC.NURSE ---
Late entry for 0815 - Pt seen in hallway fully dressed walking to elevator. When approached pt stating that he is leaving. Explained to pt that he was not D/C and he would have to leave by AMA. Pt agreed to walk back to unit to sign AMA papers. [employer] Supervisor and physician called to notify.
--- NOTE | 2020-05-30 12:08 | PC.NURSE ---
Late entry for 829- here to speak with patient. Pt still wants to leave. Dr. Aceves explained that would be leaving AMA, pt verbalized understanding and signed AMA form.
--- NOTE | 2020-05-30 15:20 | PM.DS ---
DS: Admitting Diagnosis Admitting Diagnosis Admitting Diagnosis: DT, atrial fibrillation with afib DS: Discharge Diagnosis Discharge Diagnosis (1) Acute encephalopathy: Code(s): G93.40 - Encephalopathy, unspecified Status: Acute Assessment and Plan: Appears to be secondary to acute alcohol withdrawal. The patient has been admitted to ICU. NPO. Continue telemetry. Neuro checks. We will obtain a stat CT brain rule out acute hemorrhagic CVA. Continue treatment for alcohol withdrawal. Check TSH reflex T4. (2) Atrial fibrillation with rapid ventricular response: Code(s): I48.91 - Unspecified atrial fibrillation Status: Acute Assessment and Plan: Patient does have a history of chronic atrial fibrillation. We will consider rate-controlling medications such as Cardizem IV if necessary. ER provider has consulted Cardiology who recommended IV fluids. Echocardiogram in a.m.. Continue telemetry. (3) Alcohol withdrawal: Qualifiers: Complication of substance-induced condition: with delirium Qualified Code(s): F10.231 - Alcohol dependence with withdrawal delirium Code(s): F10.239 - Alcohol dependence with withdrawal, unspecified Status: Acute Assessment and Plan: The patient is in severe alcohol withdrawal with diaphoresis, anxiety, Nausea and vomiting, visible tremors, and hallucinations. his last drink was 2 days ago. We will treat any acute seizures accordingly. We will start Precedex IV for alcohol withdrawal. (4) Sepsis: Qualifiers: Sepsis type: sepsis due to unspecified organism Sepsis acute organ dysfunction status: with acute organ dysfunction Severe sepsis acute organ dysfunction type: acute renal failure Acute renal failure type: unspecified Severe sepsis shock status: without septic shock Qualified Code(s): A41.9 - Sepsis, unspecified organism; R65.20 - Severe sepsis without septic shock; N17.9 - Acute kidney failure, unspecified Code(s): A41.9 - Sepsis, unspecified organism Status: Acute Assessment and Plan: With leukocytosis, tachycardia, and tachypnea. Source of sepsis is not clear at this time. Lactic acid is within normal limits. Patient's abnormal vitals may also be secondary to acute alcohol withdrawal. We will check urinalysis with reflex urine culture as well as blood cultures. Will consider starting IV antibiotics if there is any signs or symptoms of bacterial infections. (5) Acute renal failure: Code(s): N17.9 - Acute kidney failure, unspecified Status: Acute Assessment and Plan: Likely secondary to hypoperfusion, sepsis, and dehydration. Continue IV fluid challenge overnight. Avoid nephrotoxin agents. Renally dose medications. Monitor urine output and renal function. (6) Nausea and vomiting: Qualifiers: Vomiting type: unspecified Vomiting Intractability: non-intractable Qualified Code(s): R11.2 - Nausea with vomiting, unspecified Code(s): R11.2 - Nausea with vomiting, unspecified Status: Acute Assessment and Plan: Antiemetics as needed. Nausea vomiting is likely secondary to alcohol withdrawal. (7) Acute dehydration: Code(s): E86.0 - Dehydration Status: Acute Assessment and Plan: Likely secondary to nausea and vomiting as well as poor p.o. intake of fluids. Continue IV fluid hydration monitor vital signs and urine output. (8) Hypokalemia: Code(s): E87.6 - Hypokalemia Status: Acute Assessment and Plan: Will replace potassium IV. Monitor serum potassium. (9) Hypomagnesemia: Code(s): E83.42 - Hypomagnesemia Status: Acute Assessment and Plan: Continue to replace magnesium intravenously. DS: Summary Hospital Course Reason for hospitalization: Chief complaint: DT, atrial fibrillation with afib Narrative: This is a 54 year old male with known history of chronic atria
== END 2020-05-30 08:30 | disposition left against medical advice (07) | DRG 894 ==
LOC: ANHED 23:24 → ANHICU 05-28 06:49 → ANHCPC 06-03 16:59 → ANHICU 06-03 16:59
PROVIDERS: Internal Medicine; Admitting Provider Family Medicine; Emergency Provider General Practice; PCP Family Medicine; Visit Provider Family Medicine
DX: F10.231 Alcohol dependence with withdrawal delirium (principal); G93.49 Other encephalopathy; I48.20 Chronic atrial fibrillation, unspecified; N17.9 Acute kidney failure, unspecified; I50.22 Chronic systolic (congestive) heart failure; E86.0 Dehydration; E87.6 Hypokalemia; E83.42 Hypomagnesemia; F17.210 Nicotine dependence, cigarettes, uncomplicated; Z79.82 Long term (current) use of aspirin; G47.33 Obstructive sleep apnea (adult) (pediatric)
CPT/HCPCS: 36415; 70450; 71045; 80048; 80053; 80076; 80307; 81001; 83605; 83690; 83735; 84484; 85025; 85027; 85055; 85610; 85730; 87040; 87086; 93005; 93306; 96361; 96365; 96375; 99291; A9270; C9113; J1650; J2060; J2550; J3411; J3475; J3480; J7030; J7042; J7120